=== PATIENT | female | born 1990 | race Caucasian/White ===

== ENCOUNTER 2017-05-23 22:18 | Inpatient (IN) | payer BC ==
[2017-05-24] MEDS ORDERED: Water For Irrigation,Sterile 1,000 ML Container IRR PRN (00:08)
[2017-05-24] MEDS ORDERED: Lidocaine 1% 50 ML MDV INJECT PRN (00:08)
[2017-05-24] MEDS ORDERED: Tranexamic Acid 1,000 MG in Sodium Chloride 0.9% 100 ML IV PRN (00:08)
[2017-05-24] MEDS ORDERED: Sodium Chloride 0.9% 2.5 ML Syringe FLUSH PRN (00:08)
[2017-05-24] MEDS ORDERED: Carboprost Tromethamine 250 MCG/1 ML Amp IM PRN (00:08)
[2017-05-24] MEDS ORDERED: Nalbuphine 10 MG/1 ML Vial IVPUSH PRN (00:08)
[2017-05-24] MEDS ORDERED: Butorphanol 1 MG/ML SDV IVPUSH PRN (00:08)
[2017-05-24] MEDS ORDERED: Methylergonovine 0.2 MG/1 ML Amp IM PRN (00:08)
[2017-05-24] MEDS ORDERED: Sodium Chloride 0.9% 10 ML Syringe FLUSH PRN (00:08)
[2017-05-24] MEDS ORDERED: Misoprostol 200 MCG Tab PO PRN (00:08)
[2017-05-24] MEDS ORDERED: Oxytocin/0.9 % Sodium Chloride 30 UNIT/500 ML BAG IV SCH ×2 (00:15→05:15)
[2017-05-24] MEDS: Lactated Ringers 1,000 ML IV SCH ×3 (00:33→07:27)
[2017-05-24] MEDS ORDERED: Ropivacaine 0.2% 2 MG/ML 20 ML SDV ONE (01:12)
--- NOTE | 2017-05-24 01:36 | PCM.PREANE ---
Preanesthetic Assessment - Procedure Proposed Procedure: labor epidural - Anesthesia/Transfusion/Family Hx Anesthesia History: Prior Anesthesia Without Reaction (epidural x1) Family History of Anesthesia Reaction: No - Review of Systems Other: Reports: None - Physical Assessment Height: 5 ft 4 in Weight: 96.162 kg ASA Class: 2 Mental Status: Alert & Oriented x3 Airway Class: Mallampati = 1 Dentition: Reports: Normal Dentition Thyro-Mental Finger Breadths: 3 Mouth Opening Finger Breadths: 3 ROM/Head Extension: Full - Lab Values: Laboratory Last Values WBC 14.57 K/uL (4.0-11.0) H 05/24/17 00:25 RBC 4.76 M/uL (4.30-5.90) 05/24/17 00:25 Hgb 13.5 g/dL (12.0-16.0) 05/24/17 00:25 Hct 39.8 % (36.0-46.0) 05/24/17 00:25 MCV 83.6 fL (80.0-98.0) 05/24/17 00:25 MCH 28.4 pg (27.0-32.0) 05/24/17 00:25 MCHC 33.9 g/dL (31.0-37.0) 05/24/17 00:25 RDW Std Deviation 42.2 fl (28.0-62.0) 05/24/17 00:25 RDW Coeff of Jose J 14 % (11.0-15.0) 05/24/17 00:25 Plt Count 146 K/uL (150-400) L 05/24/17 00:25 MPV 11.00 fL (7.40-12.00) 05/24/17 00:25 Blood Type O POSITIVE 05/24/17 00:25 Antibody Screen NEGATIVE 05/24/17 00:25 - Allergies Allergies/Adverse Reactions: Allergies Allergy/AdvReac Type Severity Reaction Status Date / Time No Known Allergies Allergy Verified 05/23/17 22:45 - Blood Blood Available: Yes Product(s) Available: PRBC - Acknowledgements Anesthesia Type Planned: Epidural Pt an Appropriate Candidate for the Planned Anesthesia: Yes Alternatives and Risks of Anesthesia Discussed w Pt/Guardian: Yes Pt/Guardian Understands and Agrees with Anesthesia Plan: Yes PreAnesthesia Questionnaire - Past Health History Medical/Surgical History: Denies Medical/Surgical History - SUBSTANCE USE Smoking Status *Q: Former Smoker (smoked for 4 years quit in [facility]) Second Hand Smoke Exposure: No Recreational Drug Use History: No - HOME MEDS Home Medications: Home Meds PNV95/Ferrous Fumarate/FA [ Tablet] 1 tab PO DAILY 05/23/17 [History] - CURRENT (IN HOUSE) MEDS Current Meds: Current Medications Butorphanol Tartrate (Stadol) 1 mg IVPUSH Q1H PRN PRN Reason: Pain Carboprost Tromethamine (Hemabate Ds) 250 mcg IM ASDIRECTED PRN PRN Reason: Post Hemorrhage Tranexamic Acid 1,000 mg/ (Sodium Chloride) 110 mls @ 600 mls/hr IV ONETIME PRN PRN Reason: Bleeding Lactated Ringer's (Ringers, Lactated) 1,000 mls @ 150 mls/hr IV ASDIRECTED VIGNESH Last Admin: 05/24/17 01:24 Dose: 150 mls/hr Oxytocin/Sodium Chloride (Oxytocin 30 Unit/500 Ml-Ns) 30 unit in 500 mls @ 999 mls/hr IV TITRATE [facility] Lidocaine HCl (Xylocaine 1%) 50 ml INJECT .ONCE PRN PRN Reason: Laceration repair Methylergonovine Maleate (Methergine) 0.2 mg IM ASDIRECTED PRN PRN Reason: Post Hemorrhage Misoprostol (Cytotec) 200 mcg PO .ONCE PRN PRN Reason: Post Hemorrhage Nalbuphine HCl (Nubain) 10 mg IVPUSH Q1H PRN PRN Reason: Pain (severe 7-10) Sodium Chloride (Saline Flush) 10 ml FLUSH ASDIRECTED PRN PRN Reason: Keep Vein Open Sodium Chloride (Saline Flush) 2.5 ml FLUSH ASDIRECTED PRN PRN Reason: Keep Vein Open Sterile Water (Sterile Water For Irrigation) 1,000 ml IRR ASDIRECTED PRN PRN Reason: delivery Discontinued Medications Fentanyl/Bupivacaine HCl (Qbivfftk-Lewsy-Ld 2 Mcg/Ml-0.125%) Confirm Administered Dose 100 mls @ as directed EP .STK-MED ONE Stop: 05/24/17 01:13 Ropivacaine (Naropin 0.2%) Confirm Administered Dose 20 ml .ROUTE .STK-MED ONE Stop: 05/24/17 01:13
[2017-05-24] MEDS ORDERED: Bupivacaine 0.5% 10 ML SDV ONE (07:35)
[2017-05-24] MEDS ORDERED: oxyCODONE 5 MG Tab PO PRN (14:21)
[2017-05-24] MEDS ORDERED: Ibuprofen 800 MG Tab PO PRN (14:21)
[2017-05-24] MEDS ORDERED: Benzocaine/Menthol 20%-0.5% Spray 78 GM Cannister TOP PRN (14:21)
[2017-05-24] MEDS ORDERED: Bisacodyl 10 MG Supp RECTAL PRN (14:21)
[2017-05-24] MEDS ORDERED: Ondansetron 4 MG/2 ML SDV IVPUSH PRN (14:21)
[2017-05-24] MEDS ORDERED: Witch Hazel Medicated Pads 40/Jar TOP PRN (14:21)
[2017-05-24] MEDS ORDERED: Aluminum Hydroxide/Magnesium Hydroxide/Simethicone Susp 30 ML Cup PO PRN (14:21)
[2017-05-24] MEDS ORDERED: Ibuprofen 400 MG Tab PO PRN (14:21)
[2017-05-24] MEDS ORDERED: Docusate Sodium 100 MG Cap PO PRN (14:21)
[2017-05-24] MEDS ORDERED: Lanolin 100% Cream 7 GM Tube TOP PRN (14:21)
[2017-05-24] MEDS ORDERED: Acetaminophen 500 MG Tab PO PRN ×2 (14:21)
--- NOTE | 2017-05-24 22:25 | OR ---
SURGEON: Tennille Ahn M.D. DATE OF PROCEDURE: 05/24/2017 PREOPERATIVE DIAGNOSES: 1. A 39-6/7th week intrauterine . 2. Active labor. POSTOPERATIVE DIAGNOSES: 1. A 39-6/7th intrauterine . 2. Active labor. PROCEDURE: 1. Spontaneous vaginal delivery. 2. Bilateral labial laceration repair. PRIMARY SURGEON: Tennille Ahn M.D. ANESTHESIA: Epidural. ESTIMATED BLOOD LOSS: 300 mL. FINDINGS: Term female. scores of 9 at 1 minute and 9 at 5 minutes. Weight of 3770 grams. Spontaneous delivery. Intact placenta and 3-vessel cord. DISPOSITION: Infant to nursery, mother in LDRP. DESCRIPTION OF PROCEDURE: Nakia is a 26-year-old, G2, P1-0-0-1, at 39-6/7 weeks gestation, who presents on the morning of 05/24/2017 with regular contractions. On examination, she was found to be 5 cm dilated; therefore, she was admitted, routine labs were drawn, IV hydration was initiated. She is group B beta-strep negative. She was monitored over the next few hours and made minimal cervical change, approximately 5 to 6 cm; therefore, underwent amniotomy, clear fluid was returned. Also initiated Pitocin augmentation as contractions were spacing out. I assumed care of the patient shortly after 8 a.m. At that time, she was found to be 6 cm, 90% effaced, -1 station. heart tones 150s with variability. Continued with Pitocin augmentation. The patient continued to progress through the inclusion specialist hours. Shortly after 10:30 a.m., was found to be 7 to 8 cm and shortly before 2:00 p.m. she was found to be complete, 100% effaced, +3 station. The patient was placed in modified dorsal lithotomy position. I was called for delivery. Upon my arrival, the patient was prepped and draped in the usual aseptic manner, continued with pushing efforts, was able to push and delivered the head atraumatically spontaneously followed by anterior shoulder, posterior shoulder, and remainder of the body without difficulty. The 's oropharynx and nares were bulb suctioned. Cord was clamped x2 and cut. Infant was handed off to her mother with attending nursing staff at her side. Cord arterial, cord venous, cord blood sampling was obtained. Light suprapubic pressure was applied while the placenta was delivered spontaneously intact. Vigorous fundal uterine massage was then applied while 30 units of Pitocin was delivered in 500 mL of IV fluid. Upon inspection of cervix, vaginal sidewalls, and perineum, there was found to be bilateral first-degree labial lacerations which were repaired using 3-0 Vicryl with [id number] sutures. Hemostasis was evident. Uterus remained firm. Hemostasis remained evident. Sponge count and needle count were correct. The patient remained in LDRP, infant in nursery. ARUN / LETICIA /[id number]
[2017-05-25 07:28] VITALS: BP 97/54
--- NOTE | 2017-05-25 09:33 | PCM.PNPP ---
- General Info Date of Service: 05/25/17 Subjective Update: Feeling well. Ambulating, voiding, lochia is minimal. Tolerating regular diet. is going well. Would like to go home later today. - Review of Systems General: Denies: Fever Pulmonary: Denies: Shortness of Breath Cardiovascular: Denies: Chest Pain, Palpitations, Lightheadedness Gastrointestinal: Reports: Flatus. Denies: Nausea, Vomiting Genitourinary: Denies: Flank Pain Neurological: Reports: No Symptoms - General Info Date of Service: 05/25/17 - Patient Data Vital Signs - Most Recent: Last Vital Signs Temp 37.1 C 05/25/17 07:27 Pulse 75 05/25/17 07:27 Resp 16 05/25/17 07:27 BP 97/54 L 05/25/17 07:27 Pulse Ox 97 05/25/17 07:27 Weight - Most Recent: 96.162 kg Lab Results - Last 24 Hours: Laboratory Results - last 24 hr 05/25/17 Range/Units 05:49 Hgb 12.2 (12.0-16.0) g/dL Hct 36.3 (36.0-46.0) % Med Orders - Current: Current Medications Acetaminophen (Tylenol Extra Strength) 500 mg PO Q4H PRN PRN Reason: Pain Acetaminophen (Tylenol Extra Strength) 1,000 mg PO Q4H PRN PRN Reason: Pain Last Admin: 05/24/17 16:56 Dose: 1,000 mg Al Hydroxide/Mg Hydroxide (Mag-Al Plus) 30 ml PO Q8H PRN PRN Reason: Heartburn Benzocaine/Menthol (Dermoplast Pain Relief 20%-0.5% [place]) 78 gm TOP ASDIRECTED PRN PRN Reason: Perineal Comfort Measure Last Admin: 05/24/17 17:00 Dose: 78 gm Bisacodyl (Dulcolax) 10 mg RECTAL .ONCE PRN PRN Reason: Constipation Carboprost Tromethamine (Hemabate Ds) 250 mcg IM ASDIRECTED PRN PRN Reason: Post Hemorrhage Docusate Sodium (Colace) 100 mg PO BID PRN PRN Reason: Constipation Emollient Ointment (Lansinoh Hpa) 0 gm TOP ASDIRECTED PRN PRN Reason: Sore Nipples Tranexamic Acid 1,000 mg/ (Sodium Chloride) 110 mls @ 600 mls/hr IV ONETIME PRN PRN Reason: Bleeding Lactated Ringer's (Ringers, Lactated) 1,000 mls @ 150 mls/hr IV ASDIRECTED VIGNESH Last Admin: 05/24/17 07:27 Dose: 150 mls/hr Oxytocin/Sodium Chloride (Oxytocin 30 Unit/500 Ml-Ns) 30 unit in 500 mls @ 999 mls/hr IV TITRATE VIGNESH Oxytocin/Sodium Chloride (Oxytocin 30 Unit/500 Ml-Ns) 30 unit in 500 mls @ 2 mls/hr IV TITRATE VIGNESH; 2 MUNITS/MIN PRN Reason: Protocol Last Infusion: 05/24/17 14:07 Dose: 999 munits/min, 999 mls/hr Ibuprofen (Motrin) 400 mg PO Q4H PRN PRN Reason: Pain Ibuprofen (Motrin) 800 mg PO Q6H PRN PRN Reason: Pain Last Admin: 05/24/17 19:55 Dose: 800 mg Lidocaine HCl (Xylocaine 1%) 50 ml INJECT .ONCE PRN PRN Reason: Laceration repair Methylergonovine Maleate (Methergine) 0.2 mg IM ASDIRECTED PRN PRN Reason: Post Hemorrhage Misoprostol (Cytotec) 200 mcg PO .ONCE PRN PRN Reason: Post Hemorrhage Nalbuphine HCl (Nubain) 10 mg IVPUSH Q1H PRN PRN Reason: Pain (severe 7-10) Ondansetron HCl (Zofran) 4 mg IVPUSH Q6H PRN PRN Reason: Nausea/Vomiting Oxycodone HCl (Oxycodone) 5 mg PO Q2H PRN PRN Reason: Pain Sodium Chloride (Saline Flush) 10 ml FLUSH ASDIRECTED PRN PRN Reason: Keep Vein Open Sodium Chloride (Saline Flush) 2.5 ml FLUSH ASDIRECTED PRN PRN Reason: Keep Vein Open Witch Carrie (Tucks) 1 pad TOP ASDIRECTED PRN PRN Reason: comfort care Discontinued Medications Bupivacaine HCl (Sensorcaine-Mpf 0.5%) Confirm Administered Dose 10 ml .ROUTE .STK-MED ONE Stop: 05/24/17 07:36 Butorphanol Tartrate (Stadol) 1 mg IVPUSH Q1H PRN PRN Reason: Pain Fentanyl/Bupivacaine HCl (Atwbeiut-Ddewc-Ul 2 Mcg/Ml-0.125%) Confirm Administered Dose 100 mls @ as directed EP .STK-MED ONE Stop: 05/24/17 01:13 Last Admin: 05/24/17 04:28 Dose: Not Given Fentanyl/Bupivacaine HCl (Yvdfjpri-Bkkuu-Pn 2 Mcg/Ml-0.125%) Confirm Administered Dose 100 mls @ as directed EP .STK-MED ONE Stop: 05/24/17 09:51 Ropivacaine (Naropin 0.2%) Confirm Administered Dose 20 ml .ROUTE .STK-MED ONE Stop: 05/24/17 01:13 Last Admin: 05/24/17 04:29 Dose: Not Given Sterile Water (Sterile Water For Irrigation) 1,000 ml IRR ASDIRECTED PRN PRN Reason: delivery Last Admin: 05/24/17 14:00 Dose: 1,000 ml - Infant Interaction Infant Disposition, : in Room with Family Interaction: Holding Infant Feeding: Breastfed Infant; Nursed Well Support Person: - Recovery Exam Fundal Tone: Firm Fundal Level: 1 Fingerbreadths Below Umbilicus Fundal Placement: Midline Lochia Amount: Scant Lochia Color: Rubra/Red Bladder Status: Voiding - Exam General: Alert, Oriented Lungs: Normal Respiratory Effort Cardiovascular: Regular Rate, Regular Rhythm GI/Abdominal Exam: Normal Bowel Sounds, Soft Extremities: Pedal Edema (trace). No: Sonia's Sign Skin: Warm, Dry, Intact Psy/Mental Status: Alert, Normal Affect - Problem List & Annotations (1) Vaginal delivery SNOMED Code(s): 091307394 Code(s): O80 - ENCOUNTER FOR FULL-TERM UNCOMPLICATED DELIVERY Status: Acute Current Visit: Yes - Problem List Review Problem List Initiated/Reviewed/Updated: Yes - My Orders Last 24 Hours: My Active Orders 05/24/17 14:21 Patient Status [ADT] Routine May Shower [RC] ASDIRECTED Up ad Gisell [RC] ASDIRECTED Vital Signs [RC] PER UNIT ROUTINE Acetaminophen [Tylenol Extra Strength] 1,000 mg PO Q4H PRN Acetaminophen [Tylenol Extra Strength] 500 mg PO Q4H PRN Alum Hydrox/Mag Hydrox/Simeth [Mag-Al Plus] 30 ml PO Q8H PRN Benzocaine/Menthol [Dermoplast Pain Relief 20%-0.5% [place]] 78 gm TOP ASDIRECTED PRN Bisacodyl [Dulcolax] 10 mg RECTAL .ONCE PRN Docusate Sodium [Colace] 100 mg PO BID PRN Ibuprofen [Motrin] 400 mg PO Q4H PRN Ibuprofen [Motrin] 800 mg PO Q6H PRN Lanolin [Lansinoh HPA] See Dose Instructions TOP ASDIRECTED PRN Ondansetron [Zofran] 4 mg IVPUSH Q6H PRN Witch Carrie [Tucks] 1 pad TOP ASDIRECTED PRN oxyCODONE 5 mg PO Q2H PRN Assess Lochia [WOMSER] Per Unit Routine Assess Uterine Involution [WOMSER] Per Unit Routine Peripheral IV Discontinue [OM.PC] Routine 05/24/17 14:22 Ice Therapy [OM.PC] Per Unit Routine Perineal Care [OM.PC] Per Unit Routine Sitz Bath [OM.PC] Per Unit Routine 05/24/17 Dinner Regular Diet [DIET] 05/25/17 09:30 Ready for Discharge [RC] PER UNIT ROUTINE - Assessment Assessment:: PPD 1 status post - Plan Plan:: Discharge to home today. Infection and bleeding warnings reviewed. Discharge instructions reviewed. Follow up at [facility] 6 weeks.
--- NOTE | 2017-05-25 15:23 | PCM48HPAN ---
Post Anesthesia Note - EVALUATION WITHIN 48HRS OF ANESTHETIC Vital Signs in Normal Range: Yes Patient Participated in Evaluation: Yes Respiratory Function Stable: Yes Airway Patent: Yes Cardiovascular Function Stable: Yes Hydration Status Stable: Yes Pain Control Satisfactory: Yes Nausea and Vomiting Control Satisfactory: Yes Mental Status Recovered: Yes Resp Rate: 16 - COMMENTS/OBSERVATIONS Free Text/Narrative:: Pt has full return of motor movement and sensation following epidural. No reports of problems associated with epidural.
== END 2017-05-25 06:30 | disposition home or self-care (01) | DRG 560 ==
LOC: MW.OBCHECK 22:18 → MW.OB 22:19 → MW.OBCHECK 05-24 00:07 → MW.OB 05-24 00:08 → OBSVTOIN 05-24 14:06 → MW.OB 05-24 17:38
PROVIDERS: ADMIT Obstetrics & Gynecology; ATTEND Obstetrics & Gynecology
PROC: 10E0XZZ Delivery of Products of Conception, External Approach (ICD-10-PCS; principal; 2017-05-24)
PROC: 0HQ9XZZ Repair Perineum Skin, External Approach (ICD-10-PCS; 2017-05-24)
PROC: 10907ZC Drainage of Amniotic Fluid, Therapeutic from Products of Conception, Via Natural or Artificial Opening (ICD-10-PCS; 2017-05-24)
DX: O70.0 First degree perineal laceration during delivery (principal); Z3A.39 39 weeks gestation of pregnancy; Z37.0 Single live birth
CPT/HCPCS: 36415; 51702; 59025; 59409; 85014; 85018; 85027; 86850; 86900; 86901; A9270-GY; J2590; J7120

== ENCOUNTER 2019-01-04 19:54 | Inpatient (IN) | payer BC ==
[2019-01-04] MEDS ORDERED: Water For Irrigation,Sterile 1,000 ML Container IRR PRN (21:12)
[2019-01-04] MEDS ORDERED: Ondansetron 4 MG/2 ML SDV IVPUSH PRN (21:12)
[2019-01-04] MEDS ORDERED: Tranexamic Acid 1,000 MG in Sodium Chloride 0.9% 100 ML IV PRN (21:12)
[2019-01-04] MEDS ORDERED: Carboprost Tromethamine 250 MCG/1 ML Amp IM PRN (21:12)
[2019-01-04] MEDS ORDERED: Nalbuphine 10 MG/1 ML Vial IVPUSH PRN (21:12)
[2019-01-04] MEDS ORDERED: Sodium Chloride 0.9% 10 ML Syringe FLUSH PRN (21:12)
[2019-01-04] MEDS ORDERED: Butorphanol 1 MG/ML SDV IVPUSH PRN (21:12)
[2019-01-04] MEDS ORDERED: Terbutaline 1 MG/ML SDV SUBCUT PRN (21:12)
[2019-01-04] MEDS ORDERED: Lidocaine 1% 50 ML MDV INJECT PRN (21:12)
[2019-01-04] MEDS ORDERED: Sodium Chloride 0.9% 10 ML SDV IV PRN (21:12)
[2019-01-04] MEDS ORDERED: Misoprostol 200 MCG Tab PO PRN (21:12)
[2019-01-04] MEDS ORDERED: Methylergonovine 0.2 MG/1 ML Amp IM PRN (21:12)
[2019-01-04] MEDS ORDERED: Sodium Chloride 0.9% 2.5 ML Syringe FLUSH PRN (21:12)
[2019-01-04] MEDS ORDERED: Oxytocin/0.9 % Sodium Chloride 30 UNIT/500 ML BAG IV SCH (21:15)
[2019-01-04] MEDS ORDERED: Misoprostol 25 MCG (1/4 of 100 MCG) Tab VAG PRN (21:30)
[2019-01-05] MEDS ORDERED: Misoprostol 25 MCG (1/4 of 100 MCG) Tab VAG PRN (01:30)
[2019-01-05] MEDS: Lactated Ringers 1,000 ML IV SCH ×6 (05:58→21:27)
[2019-01-05] MEDS: Oxytocin/0.9 % Sodium Chloride 30 UNIT/500 ML BAG IV SCH ×2 (06:28→23:29)
[2019-01-05] MEDS ORDERED: fentaNYL 100 MCG/2 ML SDV ONE ×2 (09:39→19:15)
[2019-01-05] MEDS ORDERED: Ropivacaine HCl/PF 100 ML ONE ×2 (09:39→19:15)
--- NOTE | 2019-01-05 10:00 | PCM.PREANE ---
Preanesthetic Assessment - Anesthesia/Transfusion/Family Hx Anesthesia History: Prior Anesthesia Without Reaction Family History of Anesthesia Reaction: No Transfusion History: No Prior Transfusion(s) - Review of Systems General: No Symptoms Pulmonary: No Symptoms Cardiovascular: No Symptoms Gastrointestinal: No Symptoms Neurological: No Symptoms - Physical Assessment NPO Status Date: 01/05/19 NPO Status Time: 00:05 Height: 1.63 m Weight: 82.554 kg ASA Class: 1 Mental Status: Alert & Oriented x3 Dentition: Reports: Normal Dentition ROM/Head Extension: Full - Lab Values: Laboratory Last Values WBC 12.28 K/uL (4.0-11.0) H 01/04/19 20:10 RBC 4.28 M/uL (4.30-5.90) L 01/04/19 20:10 Hgb 12.0 g/dL (12.0-16.0) 01/04/19 20:10 Hct 36.4 % (36.0-46.0) 01/04/19 20:10 MCV 85.0 fL (80.0-98.0) 01/04/19 20:10 MCH 28.0 pg (27.0-32.0) 01/04/19 20:10 MCHC 33.0 g/dL (31.0-37.0) 01/04/19 20:10 RDW Std Deviation 43.0 fl (28.0-62.0) 01/04/19 20:10 RDW Coeff of Jose J 14 % (11.0-15.0) 01/04/19 20:10 Plt Count 186 K/uL (150-400) 01/04/19 20:10 MPV 11.50 fL (7.40-12.00) 01/04/19 20:10 Nucleated RBC % 0.0 /100WBC 01/04/19 20:10 Nucleated RBCs # 0 K/uL 01/04/19 20:10 Blood Type O POSITIVE 01/04/19 20:10 Antibody Screen NEGATIVE 01/04/19 20:10 - Allergies Allergies/Adverse Reactions: Allergies Allergy/AdvReac Type Severity Reaction Status Date / Time No Known Allergies Allergy Verified 05/23/17 22:45 - Acknowledgements Anesthesia Type Planned: Epidural Pt an Appropriate Candidate for the Planned Anesthesia: Yes Alternatives and Risks of Anesthesia Discussed w Pt/Guardian: Yes Pt/Guardian Understands and Agrees with Anesthesia Plan: Yes PreAnesthesia Questionnaire - Past Health History Medical/Surgical History: Denies 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: Psychiatric History: Reports: Depression - SUBSTANCE USE Smoking Status *Q: Former Smoker Tobacco Use Within Last Twelve Months: Cigarettes Second Hand Smoke Exposure: No Recreational Drug Use History: Yes Recreational Drug Type: Reports: Marijuana/Hashish - HOME MEDS Home Medications: Home Meds PNV95/Ferrous Fumarate/FA [ Tablet] 1 tab PO DAILY 05/23/17 [History] - CURRENT (IN HOUSE) MEDS Current Meds: Current Medications Butorphanol Tartrate (Stadol) 1 mg IVPUSH Q1H PRN PRN Reason: Pain Carboprost Tromethamine (Hemabate Ds) 250 mcg IM ASDIRECTED PRN PRN Reason: Post Hemorrhage Lactated Ringer's (Ringers, Lactated) 1,000 mls @ 150 mls/hr IV ASDIRECTED VIGNESH Last Infusion: 01/05/19 09:32 Dose: 999 mls/hr Oxytocin/Sodium Chloride (Oxytocin 30 Unit/500 Ml-Ns) 30 unit in 500 mls @ 999 mls/hr IV TITRATE VIGNESH Oxytocin/Sodium Chloride (Oxytocin 30 Unit/500 Ml-Ns) 30 unit in 500 mls @ 2 mls/hr IV TITRATE VIGNESH; Protocol Last Titration: 01/05/19 08:15 Dose: 8 munits/min, 8 mls/hr Tranexamic Acid 1,000 mg/ (Sodium Chloride) 110 mls @ 660 mls/hr IV ONETIME PRN PRN Reason: Bleeding Lidocaine HCl (Xylocaine 1%) 50 ml INJECT ONETIME PRN PRN Reason: Laceration repair Methylergonovine Maleate (Methergine) 0.2 mg IM ASDIRECTED PRN PRN Reason: Post Hemorrhage Misoprostol (Cytotec) 200 mcg PO ONETIME PRN PRN Reason: Post Hemorrhage Misoprostol (Cytotec) 25 mcg VAG ONETIME PRN PRN Reason: Cervical Ripening Last Admin: 01/04/19 21:36 Dose: 25 mcg Misoprostol (Cytotec) 25 mcg VAG Q4H PRN PRN Reason: Cervical Ripening Last Admin: 01/05/19 01:33 Dose: 25 mcg Nalbuphine HCl (Nubain) 10 mg IVPUSH Q1H PRN PRN Reason: Pain (severe 7-10) Ondansetron HCl (Zofran) 4 mg IVPUSH Q6H PRN PRN Reason: Nausea/Vomiting Sodium Chloride (Saline Flush) 10 ml FLUSH ASDIRECTED PRN PRN Reason: Keep Vein Open Sodium Chloride (Saline Flush) 2.5 ml FLUSH ASDIRECTED PRN PRN Reason: Keep Vein Open Sodium Chloride (Normal Saline) 10 ml IV ASDIRECTED PRN PRN Reason: IV Use Sterile Water (Sterile Water For Irrigation) 1,000 ml IRR ASDIRECTED PRN PRN Reason: delivery Terbutaline Sulfate (Brethine) 0.25 mg SUBCUT ASDIRECTED PRN PRN Reason: Tacysystole Discontinued Medications Fentanyl (Sublimaze) Confirm Administered Dose 100 mcg .ROUTE .STK-MED ONE Stop: 01/05/19 09:40 Ropivacaine (Naropin 0.2%) Confirm Administered Dose 100 mls @ as directed .ROUTE .STK-MED ONE Stop: 01/05/19 09:40
--- NOTE | 2019-01-05 10:05 | PCM.PRNOTE ---
- Free Text/Narrative Note: Anes Note Patient requests epidural for L&D. Sitting position. Sterile technique. Chloraprep scrub to lumbar area. Sterile fenetrated drape applied. Level L2-L3 minline approach. Epidural space easily achieved single attempt with ease using UMANG technique. UMANG at 4 cm. Epidural cath threaded 5 cm with ease. Secured at skin at 9 cm. Secured with sterile clear adhesive dressing. Augustine well. Test dose 0942 3 cc 1.5 lido with epi negative. Load 0945 10 cc 0.2% ropivicaine with 1 mcg cc fentanyl in slow divided doses. Pump started same solution at 0950. Rate is 8 cc hr, instructional support technician bolus 6 cc q 20 min prn. Augustine well. Time with patient [id number] Jose Juan Ledesma CRNA
[2019-01-05] MEDS ORDERED: Phenylephrine/Normal Saline 100 MCG/ML 10 ML Syringe ONE (11:43)
--- NOTE | 2019-01-05 19:25 | PCM.PRNOTE ---
- Free Text/Narrative Note: Anes Note Epidural infusion completed. A new 100 cc bag o same solution was placed, alog with new tubing. Rate continues at 8 cc hr with 6 cc q 20 min prn bolus. Patient reports excellent analgesia. Time with [id number] Jose Juan Ledesma CRNA
[2019-01-05] MEDS ORDERED: ceFAZolin 2 GM in Premix Bag 1 BAG IV ONE (23:31)
--- NOTE | 2019-01-06 01:57 | PCM.PRNOTE ---
- Free Text/Narrative Note: Anes Note 0049 I was called for assessment for possibly surgical repair of cervical laceration. Epidural was topped up with 10 cc 2% lido with epi in slow divided doses. Patient reports excellent analgesia. Time with patient [id number] Jose Juan Ledesma CRNA
--- NOTE | 2019-01-06 01:58 | PCM.PRNOTE ---
- Free Text/Narrative Note: Anes NOte I was called to top up and existing epidural for a cervical laceration. Epidural was dosed with 10cc 2% lido with epi in slow divided doses. Time with patient [id number] Patient reports excelletn analgesia. Jose Juan Ledesma LETTUCE CUTTER
[2019-01-06] MEDS ORDERED: Ibuprofen 800 MG Tab ONE (02:14)
[2019-01-06] MEDS ORDERED: Meperidine PF 50 MG/ML Syringe ONE (02:24)
[2019-01-06] MEDS ORDERED: Meperidine PF 25 MG/ML Syringe IM PRN (02:24)
[2019-01-06] MEDS ORDERED: Ibuprofen 400 MG Tab PO PRN (02:28)
[2019-01-06] MEDS ORDERED: Benzocaine/Menthol 20%-0.5% Spray 78 GM Cannister TOP PRN (02:28)
[2019-01-06] MEDS ORDERED: oxyCODONE 5 MG Tab PO PRN (02:28)
[2019-01-06] MEDS ORDERED: Bisacodyl 10 MG Supp RECTAL PRN (02:28)
[2019-01-06] MEDS ORDERED: Docusate Sodium 100 MG Cap PO PRN (02:28)
[2019-01-06] MEDS ORDERED: Ibuprofen 800 MG Tab PO PRN (02:28)
[2019-01-06] MEDS ORDERED: Lanolin 100% Cream 7 GM Tube TOP PRN (02:28)
[2019-01-06] MEDS ORDERED: Witch Hazel Medicated Pads 40/Jar TOP PRN (02:28)
[2019-01-06] MEDS ORDERED: Acetaminophen 500 MG Tab PO PRN ×2 (02:28)
--- NOTE | 2019-01-06 04:12 | OR ---
SURGEON: Jonathan Hebert MD DATE OF PROCEDURE: 01/05/2019 INDICATION: A 28-year-old, -0-0-2, female at 41-week 1-day , admitted for induction at late term. She received Cytotec, then Pitocin. The patient had recurrent variable decelerations that responded with amnioinfusion. She had progressed to 10/100/+2 station. PREOPERATIVE DIAGNOSES: 1. Jeong intrauterine at 41-week 1-day. 2. Active second stage of labor POSTOPERATIVE DIAGNOSES: 1. Jeong intrauterine at 41-week 1-day. 2. Cervical laceration. OPERATION PERFORMED: Normal spontaneous vaginal delivery and repair of cervical laceration. PRIMARY SURGEON: Jonathan Hebert MD ANESTHESIA: Epidural. ANESTHESIOLOGIST: Dr.James Curry ESTIMATED BLOOD LOSS: 400 mL. FINDINGS: Jeong intrauterine at 41w1d in cephalic presentation. Female fetus, 7 and 9, Weight of 9 lbs 2 oz. DESCRIPTION OF PROCEDURE: The patient progressed to push with contractions for approximately 20 minutes. head delivered in occiput anterior position. No nuchal cord was noted. Restituted ROT. Anterior shoulder did not deliver with downward traction. Shoulder dystocia was diagnosed, Marilee maneuver and suprapubic pressure was applied by patient's nurse. Anterior shoulder was rotated clockwise away from the pubic bone which allowed it to deliver after about 20seconds. The posterior shoulder was then delivered easily, followed by the remaining body. Baby was initially not crying after delivery, was handed over immediately to awaiting nursery staff. Cord was clamped and cut. After resuscitation, baby was crying and pink and moving all extremities. Cord gases were obtained. Placenta was delivered with gentle traction on the cord. No perineal lacerations were noted. However, she was having brisk vaginal bleeding, the lower uterine segment was found to be boggy and bilateral cervical lacerations were noted at the 3 o'clock and 9 o'clock area. She was given Methergine IM x1. Epidural was topped off by anesthesia team for the repair. A Tena catheter was placed. The cervix was cleaned with Betadine solution. A weighted speculum was placed in the posterior vaginal vault, and right-angled retractors were used to retract the urethra and lateral vaginal wall. The cervix was grasped with ringed forceps and traction applied to visualize the edges of the cervical laceration. Running sutures were placed along the 3 o'clock laceration with 2-0 vicryl. Hemostasis was confirmed. Then attention was turned to the laceration at 9 o' clock. It was noted to be very deep and extended up towards the internal os. Multiple interrupted sutures and yjgane-cd-vkszal were placed with 0 Vicryl suture along the entire length of the laceration until hemostasis was confirmed. Uterus was firm at the fundus and in the lower uterine segment, and bleeding was minimal. Surgicel was placed over the site of the laceration. The patient was cleaned, and care instructions were given. KALI KELLY /[id number] MTDDeb
[2019-01-06] MEDS: ceFAZolin 2 GM in Premix Bag 1 BAG IV SCH ×2 (08:00→16:01)
--- NOTE | 2019-01-06 08:57 | PCM.PNPP ---
- General Info Date of Service: 01/06/19 Subjective Update: Patient feeling well. Having some cramping. Bleeding is light. Tena was just removed, has not voided yet. Denies any fever or chills. Functional Status: Reports: Pain Controlled, Tolerating Diet, Ambulating - Review of Systems General: Reports: No Symptoms HEENT: Reports: No Symptoms Pulmonary: Reports: No Symptoms Cardiovascular: Reports: No Symptoms Gastrointestinal: Reports: No Symptoms Genitourinary: Reports: Pain Musculoskeletal: Reports: No Symptoms Skin: Reports: No Symptoms Neurological: Reports: No Symptoms Psychiatric: Reports: No Symptoms - Patient Data Weight - Most Recent: 182 lb I&O - Last 24 Hours: Intake & Output 01/05/19 01/06/19 01/06/19 22:59 06:59 14:59 Output Total 1450 Balance -1450 Lab Results - Last 24 Hours: Laboratory Results - last 24 hr 01/05/19 01/06/19 Range/Units 22:54 04:40 WBC 26.53 H (4.0-11.0) K/uL RBC 4.40 (4.30-5.90) M/uL Hgb 12.3 (12.0-16.0) g/dL Hct 37.2 (36.0-46.0) % MCV 84.5 (80.0-98.0) fL MCH 28.0 (27.0-32.0) pg MCHC 33.1 (31.0-37.0) g/dL RDW Std Deviation 42.6 (28.0-62.0) fl RDW Coeff of Jose J 14 (11.0-15.0) % Plt Count 183 (150-400) K/uL MPV 11.70 (7.40-12.00) fL Add Manual Diff YES Neutrophils % (Manual) 81 H (48.0-80.0) % Band Neutrophils % 8 % Lymphocytes % (Manual) 7 L (16.0-40.0) % Monocytes % (Manual) 4 (0.0-15.0) % Nucleated RBC % 0.0 /100WBC Absolute Seg Neuts 21.5 H (1.4-5.7) Band Neutrophils # 2.1 Lymphocytes # (Manual) 1.9 (0.6-2.4) Monocytes # (Manual) 1.1 H (0.0-0.8) Nucleated RBCs # 0 K/uL Cord ABG pH 7.244 (7.18-7.38) Cord ABG Base Excess -8 (-10--2) Cord VBG pH 7.326 (7.25-7.45) Cord VBG Base Excess -7 (-10--2) Med Orders - Current: Current Medications Acetaminophen (Tylenol Extra Strength) 500 mg PO Q4H PRN PRN Reason: Pain Acetaminophen (Tylenol Extra Strength) 1,000 mg PO Q4H PRN PRN Reason: Pain Benzocaine/Menthol (Dermoplast Pain Relief 20%-0.5% [place]) 78 gm TOP ASDIRECTED PRN PRN Reason: Perineal Comfort Measure Bisacodyl (Dulcolax) 10 mg RECTAL ONETIME PRN PRN Reason: Constipation Butorphanol Tartrate (Stadol) 1 mg IVPUSH Q1H PRN PRN Reason: Pain Carboprost Tromethamine (Hemabate Ds) 250 mcg IM ASDIRECTED PRN PRN Reason: Post Hemorrhage Docusate Sodium (Colace) 100 mg PO BID PRN PRN Reason: Constipation Emollient Ointment (Lansinoh Hpa) 0 gm TOP ASDIRECTED PRN PRN Reason: Sore Nipples Lactated Ringer's (Ringers, Lactated) 1,000 mls @ 150 mls/hr IV ASDIRECTED VIGNESH Last Admin: 01/05/19 21:27 Dose: 150 mls/hr Oxytocin/Sodium Chloride (Oxytocin 30 Unit/500 Ml-Ns) 30 unit in 500 mls @ 999 mls/hr IV TITRATE VIGNESH Oxytocin/Sodium Chloride (Oxytocin 30 Unit/500 Ml-Ns) 30 unit in 500 mls @ 2 mls/hr IV TITRATE VIGNESH; Protocol Last Titration: 01/05/19 23:29 Dose: 500 mls/hr Tranexamic Acid 1,000 mg/ (Sodium Chloride) 110 mls @ 660 mls/hr IV ONETIME PRN PRN Reason: Bleeding Cefazolin Sodium/Dextrose 2 gm (/ Premix) 50 mls @ 100 mls/hr IV Q8H [facility] Stop: 01/06/19 16:29 Ibuprofen (Motrin) 400 mg PO Q4H PRN PRN Reason: Pain Ibuprofen (Motrin) 800 mg PO Q6H PRN PRN Reason: Pain Lidocaine HCl (Xylocaine 1%) 50 ml INJECT ONETIME PRN PRN Reason: Laceration repair Meperidine HCl (Demerol) 25 mg IM Q2H PRN PRN Reason: Shivering Last Admin: 01/06/19 02:33 Dose: 25 mg Methylergonovine Maleate (Methergine) 0.2 mg IM ASDIRECTED PRN PRN Reason: Post Hemorrhage Last Admin: 01/05/19 23:10 Dose: 0.2 mg Misoprostol (Cytotec) 200 mcg PO ONETIME PRN PRN Reason: Post Hemorrhage Misoprostol (Cytotec) 25 mcg VAG ONETIME PRN PRN Reason: Cervical Ripening Last Admin: 01/04/19 21:36 Dose: 25 mcg Misoprostol (Cytotec) 25 mcg VAG Q4H PRN PRN Reason: Cervical Ripening Last Admin: 01/05/19 01:33 Dose: 25 mcg Nalbuphine HCl (Nubain) 10 mg IVPUSH Q1H PRN PRN Reason: Pain (severe 7-10) Ondansetron HCl (Zofran) 4 mg IVPUSH Q6H PRN PRN Reason: Nausea/Vomiting Last Admin: 01/05/19 19:43 Dose: 4 mg Oxycodone HCl (Oxycodone) 5 mg PO Q2H PRN PRN Reason: Pain Sodium Chloride (Saline Flush) 10 ml FLUSH ASDIRECTED PRN PRN Reason: Keep Vein Open Sodium Chloride (Saline Flush) 2.5 ml FLUSH ASDIRECTED PRN PRN Reason: Keep Vein Open Sodium Chloride (Normal Saline) 10 ml IV ASDIRECTED PRN PRN Reason: IV Use Sterile Water (Sterile Water For Irrigation) 1,000 ml IRR ASDIRECTED PRN PRN Reason: delivery Terbutaline Sulfate (Brethine) 0.25 mg SUBCUT ASDIRECTED PRN PRN Reason: Tacysystole Witch Carrie (Tucks) 1 pad TOP ASDIRECTED PRN PRN Reason: comfort care Discontinued Medications Fentanyl (Sublimaze) Confirm Administered Dose 100 mcg .ROUTE .STK-MED ONE Stop: 01/05/19 09:40 Fentanyl (Sublimaze) Confirm Administered Dose 100 mcg .ROUTE .STK-MED ONE Stop: 01/05/19 19:16 Ropivacaine (Naropin 0.2%) Confirm Administered Dose 100 mls @ as directed .ROUTE .STK-MED ONE Stop: 01/05/19 09:40 Ropivacaine (Naropin 0.2%) Confirm Administered Dose 100 mls @ as directed .ROUTE .STK-MED ONE Stop: 01/05/19 19:16 Cefazolin Sodium/Dextrose 2 gm (/ Premix) 50 mls @ 100 mls/hr IV ONETIME ONE Stop: 01/06/19 00:00 Last Admin: 01/05/19 23:45 Dose: 100 mls/hr Ibuprofen (Motrin) Confirm Administered Dose 800 mg .ROUTE .STK-MED ONE Stop: 01/06/19 02:15 Meperidine HCl (Demerol) Confirm Administered Dose 50 mg .ROUTE .STK-MED ONE Stop: 01/06/19 02:25 Phenylephrine HCl (Phenylephrine In Ns 100 Mcg/Ml) Confirm Administered Dose 1 mg .ROUTE .STK-MED ONE Stop: 01/05/19 11:44 - Interaction Disposition, : [place] at Bedside Infant Interaction: Holding Infant Feeding: Breastfed Infant; Nursed Well Support Person: - Recovery Exam Fundal Tone: Firm Fundal Level: At Umbilicus Fundal Placement: Midline Lochia Amount: Scant Lochia Color: Rubra/Red Perineum Description: Intact, Minimal Bruising/Swelling - Exam General: Alert, Oriented, No Acute Distress HEENT: Pupils Equal, Pupils Reactive, EOMI Neck: Supple, Trachea Midline Lungs: Normal Respiratory Effort GI/Abdominal Exam: Soft, Non-Tender, No Distention Extremities: Normal Inspection, Non-Tender, No Pedal Edema Skin: Warm, Dry, Intact Wound/Incisions: Healing Well, Other (Minimal vaginal bleeding ) Neurological: No New Focal Deficit Psy/Mental Status: Alert, Normal Affect, Normal Mood - Problem List Review Problem List Initiated/Reviewed/Updated: Yes - My Orders Last 24 Hours: My Active Orders 01/06/19 02:28 Patient Status [ADT] Routine May Shower [RC] ASDIRECTED Up ad [place] [RC] ASDIRECTED Urinary Catheter Removal [RC] Per Unit Routine Vital Signs [RC] PER UNIT ROUTINE Acetaminophen [Tylenol Extra Strength] 1,000 mg PO Q4H PRN Acetaminophen [Tylenol Extra Strength] 500 mg PO Q4H PRN Benzocaine/Menthol [Dermoplast Pain Relief 20%-0.5% [place]] 78 gm TOP ASDIRECTED PRN Bisacodyl [Dulcolax] 10 mg RECTAL ONETIME PRN Docusate Sodium [Colace] 100 mg PO BID PRN Ibuprofen [Motrin] 400 mg PO Q4H PRN Ibuprofen [Motrin] 800 mg PO Q6H PRN Lanolin [Lansinoh HPA] See Dose Instructions TOP ASDIRECTED PRN Witch Carrie [Tucks] 1 pad TOP ASDIRECTED PRN oxyCODONE 5 mg PO Q2H PRN Assess Lochia [WOMSER] Per Unit Routine Assess Uterine Involution [WOMSER] Per Unit Routine Breast Pump [WOMSER] Per Unit Routine Ice Therapy [OM.PC] Per Unit Routine Perineal Care [OM.PC] Per Unit Routine Peripheral IV Discontinue [OM.PC] Routine Sitz Bath [OM.PC] Per Unit Routine 01/06/19 08:00 ceFAZolin [Ancef] 2 gm Premix Bag 1 bag IV Q8H 01/06/19 Breakfast Regular Diet [DIET] 01/07/19 05:11 HEMOGLOBIN/HEMATOCRIT,HH [HEME] Timed - Assessment Assessment:: 28yo PPD1 s/p complicated by shoulder dystocia and cervical lacerations s/p repair. Stable and recovering well. - VSS, afebrile - WBC 26 this AM with 2% bands, will repeat PPD2 - continue ancef IV for 24hrs - pain is controlled - Hgb 12.0 on admission, 12.3 this AM, stable with minimal bleeding Continue inpatient until PPD2.
--- NOTE | 2019-01-07 08:56 | PCM.PNPP ---
- General Info Date of Service: 01/07/19 Functional Status: Reports: Pain Controlled, Tolerating Diet, Ambulating, Urinating - Review of Systems General: Reports: Fatigue. Denies: Fever Pulmonary: Denies: Shortness of Breath Cardiovascular: Denies: Chest Pain, Palpitations, Lightheadedness Gastrointestinal: Reports: Nausea, Vomiting. Denies: Abdominal Pain Genitourinary: Denies: Flank Pain Musculoskeletal: Reports: No Symptoms Skin: Reports: No Symptoms Neurological: Reports: No Symptoms Psychiatric: Reports: No Symptoms - General Info Date of Service: 01/07/19 - Patient Data Vital Signs - Most Recent: Last Vital Signs Temp 36.6 C 01/07/19 04:15 Pulse 64 01/07/19 04:15 Resp 16 01/07/19 04:15 BP 98/48 L 01/07/19 04:15 Pulse Ox 94 L 01/07/19 04:15 Weight - Most Recent: 82.554 kg Lab Results - Last 24 Hours: Laboratory Results - last 24 hr 01/07/19 Range/Units 06:18 WBC 12.78 H (4.0-11.0) K/uL RBC 3.85 L (4.30-5.90) M/uL Hgb 10.8 L (12.0-16.0) g/dL Hct 32.8 L (36.0-46.0) % MCV 85.2 (80.0-98.0) fL MCH 28.1 (27.0-32.0) pg MCHC 32.9 (31.0-37.0) g/dL RDW Std Deviation 43.3 (28.0-62.0) fl RDW Coeff of Jose J 14 (11.0-15.0) % Plt Count 188 (150-400) K/uL MPV 11.10 (7.40-12.00) fL Nucleated RBC % 0.0 /100WBC Nucleated RBCs # 0 K/uL Med Orders - Current: Current Medications Acetaminophen (Tylenol Extra Strength) 500 mg PO Q4H PRN PRN Reason: Pain Acetaminophen (Tylenol Extra Strength) 1,000 mg PO Q4H PRN PRN Reason: Pain Last Admin: 01/06/19 08:55 Dose: 1,000 mg Benzocaine/Menthol (Dermoplast Pain Relief 20%-0.5% [place]) 78 gm TOP ASDIRECTED PRN PRN Reason: Perineal Comfort Measure Bisacodyl (Dulcolax) 10 mg RECTAL ONETIME PRN PRN Reason: Constipation Butorphanol Tartrate (Stadol) 1 mg IVPUSH Q1H PRN PRN Reason: Pain Carboprost Tromethamine (Hemabate Ds) 250 mcg IM ASDIRECTED PRN PRN Reason: Post Hemorrhage Docusate Sodium (Colace) 100 mg PO BID PRN PRN Reason: Constipation Emollient Ointment (Lansinoh Hpa) 0 gm TOP ASDIRECTED PRN PRN Reason: Sore Nipples Lactated Ringer's (Ringers, Lactated) 1,000 mls @ 150 mls/hr IV ASDIRECTED VIGNESH Last Admin: 01/05/19 21:27 Dose: 150 mls/hr Oxytocin/Sodium Chloride (Oxytocin 30 Unit/500 Ml-Ns) 30 unit in 500 mls @ 999 mls/hr IV TITRATE VIGNESH Oxytocin/Sodium Chloride (Oxytocin 30 Unit/500 Ml-Ns) 30 unit in 500 mls @ 2 mls/hr IV TITRATE VIGNESH; Protocol Last Titration: 01/05/19 23:29 Dose: 500 mls/hr Tranexamic Acid 1,000 mg/ (Sodium Chloride) 110 mls @ 660 mls/hr IV ONETIME PRN PRN Reason: Bleeding Ibuprofen (Motrin) 400 mg PO Q4H PRN PRN Reason: Pain Ibuprofen (Motrin) 800 mg PO Q6H PRN PRN Reason: Pain Lidocaine HCl (Xylocaine 1%) 50 ml INJECT ONETIME PRN PRN Reason: Laceration repair Meperidine HCl (Demerol) 25 mg IM Q2H PRN PRN Reason: Shivering Last Admin: 01/06/19 02:33 Dose: 25 mg Methylergonovine Maleate (Methergine) 0.2 mg IM ASDIRECTED PRN PRN Reason: Post Hemorrhage Last Admin: 01/05/19 23:10 Dose: 0.2 mg Misoprostol (Cytotec) 200 mcg PO ONETIME PRN PRN Reason: Post Hemorrhage Misoprostol (Cytotec) 25 mcg VAG ONETIME PRN PRN Reason: Cervical Ripening Last Admin: 01/04/19 21:36 Dose: 25 mcg Misoprostol (Cytotec) 25 mcg VAG Q4H PRN PRN Reason: Cervical Ripening Last Admin: 01/05/19 01:33 Dose: 25 mcg Nalbuphine HCl (Nubain) 10 mg IVPUSH Q1H PRN PRN Reason: Pain (severe 7-10) Ondansetron HCl (Zofran) 4 mg IVPUSH Q6H PRN PRN Reason: Nausea/Vomiting Last Admin: 01/05/19 19:43 Dose: 4 mg Oxycodone HCl (Oxycodone) 5 mg PO Q2H PRN PRN Reason: Pain Sodium Chloride (Saline Flush) 10 ml FLUSH ASDIRECTED PRN PRN Reason: Keep Vein Open Sodium Chloride (Saline Flush) 2.5 ml FLUSH ASDIRECTED PRN PRN Reason: Keep Vein Open Sodium Chloride (Normal Saline) 10 ml IV ASDIRECTED PRN PRN Reason: IV Use Sterile Water (Sterile Water For Irrigation) 1,000 ml IRR ASDIRECTED PRN PRN Reason: delivery Terbutaline Sulfate (Brethine) 0.25 mg SUBCUT ASDIRECTED PRN PRN Reason: Tacysystole Witch Carrie (Tucks) 1 pad TOP ASDIRECTED PRN PRN Reason: comfort care Discontinued Medications Fentanyl (Sublimaze) Confirm Administered Dose 100 mcg .ROUTE .STK-MED ONE Stop: 01/05/19 09:40 Last Admin: 01/06/19 19:52 Dose: Not Given Fentanyl (Sublimaze) Confirm Administered Dose 100 mcg .ROUTE .STK-MED ONE Stop: 01/05/19 19:16 Last Admin: 01/06/19 19:52 Dose: Not Given Ropivacaine (Naropin 0.2%) Confirm Administered Dose 100 mls @ as directed .ROUTE .STK-MED ONE Stop: 01/05/19 09:40 Last Admin: 01/06/19 19:52 Dose: Not Given Ropivacaine (Naropin 0.2%) Confirm Administered Dose 100 mls @ as directed .ROUTE .STK-MED ONE Stop: 01/05/19 19:16 Last Admin: 01/06/19 19:52 Dose: Not Given Cefazolin Sodium/Dextrose 2 gm (/ Premix) 50 mls @ 100 mls/hr IV ONETIME ONE Stop: 01/06/19 00:00 Last Admin: 01/05/19 23:45 Dose: 100 mls/hr Cefazolin Sodium/Dextrose 2 gm (/ Premix) 50 mls @ 100 mls/hr IV Q8H VIGNESH Stop: 01/06/19 16:29 Last Admin: 01/06/19 16:01 Dose: 100 mls/hr Ibuprofen (Motrin) Confirm Administered Dose 800 mg .ROUTE .STK-MED ONE Stop: 01/06/19 02:15 Last Admin: 01/06/19 19:53 Dose: Not Given Meperidine HCl (Demerol) Confirm Administered Dose 50 mg .ROUTE .STK-MED ONE Stop: 01/06/19 02:25 Last Admin: 01/06/19 19:53 Dose: Not Given Phenylephrine HCl (Phenylephrine In Ns 100 Mcg/Ml) Confirm Administered Dose 1 mg .ROUTE .STK-MED ONE Stop: 01/05/19 11:44 - Interaction Disposition, : at Bedside Infant Interaction: Holding Feeding: Breastfed Infant; Nursed Well Support Person: - Recovery Exam Fundal Tone: Firm Fundal Level: 1 Fingerbreadths Below Umbilicus Fundal Placement: Midline Lochia Amount: Scant Lochia Color: Rubra/Red Perineum Description: Intact, Minimal Bruising/Swelling Bladder Status: Voiding Urinary Elimination: Voided - Exam General: Alert, Oriented Lungs: Normal Respiratory Effort Cardiovascular: Regular Rate, Regular Rhythm GI/Abdominal Exam: Normal Bowel Sounds, Soft Extremities: Pedal Edema (trace). No: Sonia's Sign Skin: Warm, Dry, Intact Neurological: No New Focal Deficit Psy/Mental Status: Alert, Normal Affect - Problem List & Annotations (1) Vaginal delivery SNOMED Code(s): 393735913 Code(s): O80 - ENCOUNTER FOR FULL-TERM UNCOMPLICATED DELIVERY Status: Acute Current Visit: No - Problem List Review Problem List Initiated/Reviewed/Updated: Yes - My Orders Last 24 Hours: My Active Orders 01/07/19 08:53 Ready for Discharge [RC] PER UNIT ROUTINE - Assessment Assessment:: 28yo PPD2 s/p complicated by shoulder dystocia and cervical lacerations s/p repair. Stable and recovering well. . - Plan Plan:: Patient doing well today. VS remain stable. Patient feels ready to go home. Discharge instructions reviewed. Follow up at [facility] 2 and 6 weeks. Discharge to home today.
[2019-01-07 09:21] VITALS: BP 105/64; PULSE 71
== END 2019-01-07 11:45 | disposition home or self-care (01) | DRG 542 ==
LOC: MW.OB 19:54 → OBSVTOIN 01-05 22:54 → MW.OB 01-06 06:44
PROVIDERS: ADMIT Obstetrics & Gynecology; ATTEND Obstetrics & Gynecology
PROC: 10E0XZZ Delivery of Products of Conception, External Approach (ICD-10-PCS; principal; 2019-01-05)
PROC: 0UQC0ZZ Repair Cervix, Open Approach (ICD-10-PCS; 2019-01-05)
PROC: 4A1HXCZ Monitoring of Products of Conception, Cardiac Rate, External Approach (ICD-10-PCS; 2019-01-05)
PROC: 3E0P7VZ Introduction of Hormone into Female Reproductive, Via Natural or Artificial Opening (ICD-10-PCS; 2019-01-05)
PROC: 3E033VJ Introduction of Other Hormone into Peripheral Vein, Percutaneous Approach (ICD-10-PCS; 2019-01-05)
PROC: 10907ZC Drainage of Amniotic Fluid, Therapeutic from Products of Conception, Via Natural or Artificial Opening (ICD-10-PCS; 2019-01-05)
PROC: 10H07YZ Insertion of Other Device into Products of Conception, Via Natural or Artificial Opening (ICD-10-PCS; 2019-01-05)
PROC: 00HU33Z Insertion of Infusion Device into Spinal Canal, Percutaneous Approach (ICD-10-PCS; 2019-01-05)
PROC: 3E0R3BZ Introduction of Anesthetic Agent into Spinal Canal, Percutaneous Approach (ICD-10-PCS; 2019-01-05)
DX: O48.0 Post-term pregnancy (principal); O66.0 Obstructed labor due to shoulder dystocia; O76 Abnormality in fetal heart rate and rhythm complicating labor and delivery; O71.3 Obstetric laceration of cervix; Z37.0 Single live birth; Z3A.41 41 weeks gestation of pregnancy; Z87.891 Personal history of nicotine dependence
CPT/HCPCS: 36415; 51702; 59025; 59409; 82803; 85025; 85027; 86850; 86900; 86901; A9270-GY; J0690; J2175; J2210; J2370; J2405; J2590; J2795; J3010; J7120